=== PATIENT | male | born 1935 | race Caucasian/White ===

== ENCOUNTER 2023-01-03 14:46 | Outpatient (CLI) | payer MEDICARE, OTHER, SELFPAY | END 2023-01-03 14:47 | disposition home or self-care (01) | LOC: NFLDREF 01-05 15:23 | PROVIDERS: PCP Physician Assistant Medical; Referring Provider Physician Assistant Medical; Visit Provider Physician Assistant Medical | DX: Z00.00 Encounter for general adult medical examination without abnormal findings (principal); E78.5 Hyperlipidemia, unspecified; N40.0 Benign prostatic hyperplasia without lower urinary tract symptoms; E55.9 Vitamin D deficiency, unspecified; I10 Essential (primary) hypertension; R73.03 Prediabetes; I63.9 Cerebral infarction, unspecified; R26.89 Other abnormalities of gait and mobility; C71.9 Malignant neoplasm of brain, unspecified | CPT/HCPCS: 80053; 80061; 82306; 82607; 84443 ==

== ENCOUNTER 2023-03-29 15:04 | Outpatient (CLI) | payer MEDICARE, OTHER, SELFPAY | END 2023-03-29 15:05 | disposition home or self-care (01) | LOC: NFLDREF 04-01 10:40 | PROVIDERS: PCP Physician Assistant Medical; Referring Provider Physician Assistant Medical; Visit Provider Physician Assistant Medical | DX: E55.9 Vitamin D deficiency, unspecified (principal) | CPT/HCPCS: 82306 ==

== ENCOUNTER 2024-01-31 14:10 | Outpatient (CLI) | payer MEDICARE, SELFPAY | END 2024-01-31 14:11 | disposition home or self-care (01) | LOC: NFLDREF 02-01 06:56 | PROVIDERS: PCP Physician Assistant Medical; Referring Provider Physician Assistant Medical; Visit Provider Physician Assistant Medical | DX: E55.9 Vitamin D deficiency, unspecified (principal); I10 Essential (primary) hypertension; E78.5 Hyperlipidemia, unspecified; R73.03 Prediabetes | CPT/HCPCS: 80053; 80061; 82306; 84443 ==